=== PATIENT | female | born 1975 | race Caucasian/White ===

== ENCOUNTER → 2016-06-17 | Outpatient (REF) | payer BC | END | disposition home or self-care (01) | LOC: M SFHCCLAY 09:09 | PROVIDERS: ATTEND Family Medicine | DX: N39.0 Urinary tract infection, site not specified (principal) ==

== ENCOUNTER → 2016-11-20 | Outpatient (REF) | payer BC | LOC: M SFHCCLAY 08:29 | PROVIDERS: ATTEND Family Medicine | DX: Z12.4 Encounter for screening for malignant neoplasm of cervix (principal) ==

== ENCOUNTER → 2016-12-03 | Outpatient (CLI) | payer BC ==
--- NOTE | 2016-12-03 13:00 | REPMRS ---
Patient History The patient states she had a clinical breast exam in November 2016. No known family history of cancer. Taking hormonal contraceptives for 2 years. Digital Mammo Screening Bilat: December 03, 2016 - Exam #: [id number] Bilateral CC and MLO view(s) were taken. Technologist: Tricia Cordero, Technologist FINDINGS: There are scattered fibroglandular densities. There is no evidence of cancer on this mammogram. ASSESSMENT: BI-RADS/ACR category 2 mammogram. Benign finding(s). Recommendation Routine screening mammogram of both breasts in 1 year (for women over age 40). This mammogram was interpreted with the aid of an FDA-approved computer-aided dectection system. Electronically Signed By: Amado Byrnes MD 12/03/16 [id number]
== END ==
LOC: M RAD 10:28
PROVIDERS: ATTEND Family Medicine
DX: Z12.31 Encounter for screening mammogram for malignant neoplasm of breast (principal); Z92.0 Personal history of contraception; R92.8 Other abnormal and inconclusive findings on diagnostic imaging of breast

== ENCOUNTER → 2018-02-10 | Outpatient (CLI) | payer BC | LOC: M CLY 14:05 | DX: S62.666A Nondisplaced fracture of distal phalanx of right little finger, initial encounter for closed fracture (principal); X58.XXXA Exposure to other specified factors, initial encounter; Y92.9 Unspecified place or not applicable | CPT/HCPCS: 73130 ==

== ENCOUNTER → 2018-05-18 | Outpatient (CLI) | payer BC ==
--- NOTE | 2018-05-18 15:40 | REPMRS ---
Patient History The patient states she has not had a clinical breast exam in over a year. No known family history of cancer. Taking hormonal contraceptives for 2 years. Digital Mammo Screening Bilat: May 18, 2018 - Exam #: [id number] Bilateral CC and MLO view(s) were taken. Technologist: Tricia Cordero, Technologist Prior study comparison: December 03, 2016, bilateral digital mammo screening bilat performed at [facility]. FINDINGS: There are scattered fibroglandular densities. There has been no change in the appearance of the mammogram from the prior studies. There is a mild amount of scattered fibroglandular density which is fairly symmetric. There is no interval development of dominant mass, architectural distortion, or clustered microcalcification suggestive of malignancy. 3-D tomosynthesis shows no additional findings. Assessment: BI-RADS/ACR category 1 mammogram. Negative. Recommendation Routine screening mammogram of both breasts in 1 year (for women over age 40). This patient's Lifetime Breast Cancer RIsk is estimated at 9.6 %. This mammogram was interpreted with the aid of an FDA-approved computer-aided dectection system. Electronically Signed By: Robert Agudelo MD 05/18/18 [id number]
== END ==
LOC: M RAD 14:39
PROVIDERS: ATTEND Nurse Practitioner Family
DX: Z12.31 Encounter for screening mammogram for malignant neoplasm of breast (principal)

== ENCOUNTER → 2021-03-05 | Outpatient (CLI) | payer BC ==
--- NOTE | 2021-03-05 13:11 | REPMRS ---
Patient History The patient states she has not had a clinical breast exam in over a year. No known family history of cancer. Taking hormonal contraceptives for 3 years. Patient states no breast complaints today. Patient has signed MRS History Sheet. Digital Woman Screen Mammo: March 05, 2021 - Exam #: [id number] Bilateral CC and MLO view(s) were taken. Technologist: Tania Connors, Technologist Prior study comparison: May 18, 2018, bilateral digital mammo screening bilat, performed at [facility]. December 03, 2016, bilateral digital mammo screening bilat, performed at [facility]. FINDINGS: There are scattered fibroglandular densities. Screening. Digital screening (2D) mammography was performed bilaterally in the CC and MLO projections. Additionally, breast tomosynthesis (3D mammography) was performed bilaterally in the CC and MLO projections. Todays exam was compared to the prior exam/exams. By history, the patient has no complaints of a palpable breast abnormality or other significant breast complaints. The Volpara volumetric breast density category is B, there are scattered areas of fibroglandular densities. The breasts are unchanged in size and shape. There are no suri-soft tissue densities or spiculated masses. There is no internal architectural distortion. There are no suspicious suri-calcific clusters. Skin thickening or nipple retraction is not present. IMPRESSION: BI-RADS Category 2- Benign Findings. There is no evidence of malignant alteration of the breasts. Followup examination recommended in one year. The lifetime Tyrer-Cuzick score is 9.3% This mammogram was read with the assistance of Martina Fligoo,an FDA approved computer aided detection system for mammography. Negative x-ray reports should not delay surgical consultation if a dominant or clinically suspicious mass is present. Not all breast cancers can be identified by mammography. Therefore, we recommend that you continue to perform regular breast self-examination and physical examination and then promptly contact your physician of any concerns or changes. Adenosis and dense breasts may obscure an underlying neoplasm. No significant changes when compared with prior studies. Assessment: BI-RADS/ACR category 2 mammogram. Benign Findings. Recommendation Routine screening mammogram of both breasts in 1 year. Electronically Signed By: Marty Jara MD 03/05/21 [id number]
== END ==
LOC: M WHC 10:11
PROVIDERS: ATTEND Nurse Practitioner Family
DX: Z12.31 Encounter for screening mammogram for malignant neoplasm of breast (principal)